=== PATIENT | male | born 1965 | race African-American/Black ===

== ENCOUNTER 2018-05-25 08:58 | Emergency (ER) | payer MEDICARE ==
[2018-05-25] MEDS ORDERED: ONDANSETRON HCL 4 MG/2 ML VIAL ONE (09:32)
[2018-05-25] MEDS ORDERED: KETOROLAC TROMETHAMINE 30MG/ML ONE (09:32)
[2018-05-25 09:48] LABS: APPEARANCE,URINE Clear (CLEAR); BILIRUBIN,URINE Negative (NEGATIVE); COLOR,URINE Yellow (YELLOW); GLUCOSE, URINE (UA) Negative (NEGATIVE); KETONES,URINE Negative (NEGATIVE); LEUKOCYTE ESTERASE ,URINE Negative (NEGATIVE); NITRATE,URINE Negative (NEGATIVE); OCCULT BLOOD,URINE Negative (NEGATIVE); PROTEIN,URINE Negative (NEGATIVE)
[2018-05-25 09:52] LABS: BASOPHILS % (AUTO) 0.6 % (0.0-5.0); EOSINOPHILS % (AUTO) 0.2 % (0.0-8.0); HEMATOCRIT 41.6 % (42-54); LYMPHOCYTES % (AUTO) 10.6 % (21.0-51.0); MEAN CORPUSCULAR HGB CONC 33.1 g/dL (32.0-36.0); MEAN CORPUSCULAR VOLUME 87.5 fL (79-99); MONOCYTES % (AUTO) 9.7 % (3.0-13.0); NEUTROPHILS % (AUTO) 78.9 % (40.0-77.0); PLATELET COUNT (AUTO) 152 K/uL (130-400); RED BLOOD CELL COUNT(AUTO) 4.75 MIL/uL (4.50-6.20); RED CELL DISTRIBUTION WIDTH 14.5 % (11.0-15.5); WHITE BLOOD COUNT (AUTO) 12.5 K/uL (4.8-10.8)
[2018-05-25 09:59] LABS: CREATININE 1.4 mg/dL (0.5-1.5)
[2018-05-25 10:03] LABS: ALBUMIN 3.7 g/dL (3.5-5.0); BILIRUBIN,TOTAL 1.2 mg/dL (0.2-1.0)
[2018-05-25] MEDS ORDERED: CLONIDINE HCL 0.1 MG TABLET ONE (10:44)
[2018-05-25] MEDS ORDERED: HYDROCODONE/ACETAMINOPHEN 10/325 MG TAB ONE (10:45)
[2018-05-25] MEDS ORDERED: POTASSIUM CHLORIDE 20 MEQ ERTAB PO ONE (11:15)
[2018-05-25] MEDS ORDERED: CEFTRIAXONE SODIUM 1 GM ONE (11:15)
[2018-05-25] MEDS ORDERED: AZITHROMYCIN 250 MG TABLET PO ONE (11:16)
== END 2018-05-25 12:15 | disposition home or self-care (01) ==
LOC: EDH 08:58
DX: J15.9 Unspecified bacterial pneumonia (principal); I10 Essential (primary) hypertension; J45.909 Unspecified asthma, uncomplicated; I25.10 Atherosclerotic heart disease of native coronary artery without angina pectoris
CPT/HCPCS: 36415; 71046; 74176; 80053; 81003; 82150; 83690; 85025; 96374; 96375; 99285; J0696; J1885; J2405

== ENCOUNTER 2018-06-01 13:06 | Observation (INO) | payer MEDICARE ==
[~2018-06-01] VITALS: Ht 175.3 cm; Wt 102.1 kg
[2018-06-01] MEDS ORDERED: LABETALOL HCL 5 MG/ML 20ML VIAL IV ONE ×2 (14:28→17:15)
[2018-06-01 14:51] LABS: BASOPHILS % (AUTO) 0.4 % (0.0-5.0); EOSINOPHILS % (AUTO) 0.6 % (0.0-8.0); LYMPHOCYTES % (AUTO) 12.8 % (21.0-51.0); MEAN CORPUSCULAR HGB CONC 32.4 g/dL (32.0-36.0); MEAN CORPUSCULAR VOLUME 86.4 fL (79-99); MONOCYTES % (AUTO) 10.1 % (3.0-13.0); NEUTROPHILS % (AUTO) 76.1 % (40.0-77.0); PLATELET COUNT (AUTO) 300 K/uL (130-400); RED BLOOD CELL COUNT(AUTO) 4.29 MIL/uL (4.50-6.20); RED CELL DISTRIBUTION WIDTH 14.3 % (11.0-15.5); WHITE BLOOD COUNT (AUTO) 9.7 K/uL (4.8-10.8)
[2018-06-01] MEDS ORDERED: HYDRALAZINE HCL 20 MG/ML VIAL ONE (14:57)
[2018-06-01 15:06] LABS: INR 0.97 (0.85-1.15); PARTIAL THROMBOPLASTIN TIME 34.8 SEC (26.3-35.5); PROTHROMBIN TIME 10.2 SEC (9.6-11.6)
[2018-06-01 15:07] LABS: CREATININE 1.4 mg/dL (0.5-1.5)
[2018-06-01 15:12] LABS: ALBUMIN 3.1 g/dL (3.5-5.0); BILIRUBIN,TOTAL 0.8 mg/dL (0.2-1.0); TOTAL PROTEIN, SERUM 8.1 g/dL (6.0-8.3)
[2018-06-01] MEDS ORDERED: IOHEXOL 350 MG/ML 100ML INFUS..BTL IV ONE (16:05)
[2018-06-01] MEDS ORDERED: NITROGLYCERIN 1GM/1 INCH PACKET TD ONE (16:39)
[2018-06-01] MEDS ORDERED: POTASSIUM BICARB/CIT AC 25 MEQ TABLET.EFF ONE (16:52)
[2018-06-01] MEDS ORDERED: MORPHINE SULFATE 4 MG/1ML SYG ONE (17:05)
[2018-06-01] MEDS ORDERED: ONDANSETRON HCL 4 MG/2 ML VIAL ONE (17:05)
[2018-06-01] MEDS ORDERED: AMLODIPINE BESYLATE 5 MG TAB PO ONE (17:51)
[2018-06-01] MEDS ORDERED: METOPROLOL TARTRATE 50 MG TAB ONE (17:52)
[2018-06-01 18:28] LABS: AMPHET/METH SCREEN,URINE NEGATIVE (NEGATIVE); BARBITURATE SCREEN, URINE NEGATIVE (NEGATIVE); BENZODIAZEPINES SCREEN,URINE NEGATIVE (NEGATIVE); CANNABINOID SCREEN,URINE NEGATIVE (NEGATIVE); COCAINE SCREEN,URINE NEGATIVE (NEGATIVE); OPIATE SCREEN,URINE POSITIVE (NEGATIVE); PHENCYCLIDINE SCREEN,URINE NEGATIVE (NEGATIVE)
[2018-06-01 18:31] LABS: CREATINE KINASE, TOTAL 112 U/L (21-232); MYOGLOBIN 46 ng/mL (10-92); TROPONIN I < 0.04 ng/mL (0.00-0.06)
[2018-06-01 22:09] VITALS: BP 163/104
[2018-06-02] MEDS ORDERED: AMLO10TA6 PO (01:17)
[2018-06-02] MEDS ORDERED: METO50TA18 PO (01:17)
[2018-06-02] MEDS ORDERED: HYDR100T27 PO (01:17)
[2018-06-02] MEDS ORDERED: VENL75TA63 PO (01:17)
[2018-06-02] MEDS ORDERED: ZOLP10TA6 PO (01:17)
[2018-06-02 02:08] LABS: HEMATOCRIT 36.5 % (42-54); MEAN CORPUSCULAR HEMOGLOBIN 27.8 pg (27.0-33.0); MEAN CORPUSCULAR HGB CONC 32.5 g/dL (32.0-36.0); MEAN CORPUSCULAR VOLUME 85.7 fL (79-99); PLATELET COUNT (AUTO) 310 K/uL (130-400); RED BLOOD CELL COUNT(AUTO) 4.25 MIL/uL (4.50-6.20); RED CELL DISTRIBUTION WIDTH 13.9 % (11.0-15.5); WHITE BLOOD COUNT (AUTO) 10.1 K/uL (4.8-10.8)
[2018-06-02 02:25] LABS: CARBON DIOXIDE 23 mmol/L (21-32); CHLORIDE 106 mmol/L (101-111); CREATINE KINASE, TOTAL 87 U/L (21-232); CREATININE 1.2 mg/dL (0.5-1.5); GLOMERULAR FILTR. RATE CALC 81 mL/min (>60); GLUCOSE,RANDOM 112 mg/dL (70-105); MYOGLOBIN 32 ng/mL (10-92); POTASSIUM 3.2 mmol/L (3.5-5.1); SODIUM SERUM 140 mmol/L (136-145); TROPONIN I < 0.04 ng/mL (0.00-0.06); UREA NITROGEN, BLOOD 10 mg/dL (7-18)
[2018-06-02 04:00] VITALS: BP 166/96
[2018-06-02] MEDS ORDERED: POTASSIUM CHLORIDE 10 MEQ/TAB.SA PO ONE ×2 (06:54)
[2018-06-02] MEDS ORDERED: REGADENOSON 0.4 MG/5 ML PF SYG IVP SCH (07:00)
[2018-06-02] MEDS: POTASSIUM CHLORIDE 20 MEQ ERTAB PO SCH (07:00)
[2018-06-02 07:34] VITALS: BP 161/99
[2018-06-02] MEDS: AMLODIPINE BESYLATE 5 MG TAB PO SCH (09:24)
[2018-06-02] MEDS: VENLAFAXINE HCL 75 MG TAB PO SCH (09:24)
[2018-06-02] MEDS: HYDRALAZINE HCL 25 MG TABLET PO SCH ×2 (09:25→21:38)
[2018-06-02] MEDS: ASPIRIN 81MG TAB.CHEW PO SCH (09:25)
[2018-06-02] MEDS: METOPROLOL TARTRATE 50 MG TAB PO SCH ×2 (09:25→21:38)
[2018-06-02] MEDS ORDERED: ONDANSETRON HCL 4 MG/2 ML VIAL ONE (10:15)
[2018-06-02 10:29] LABS: CREATINE KINASE, TOTAL 94 U/L (21-232); MYOGLOBIN 44 ng/mL (10-92); TROPONIN I < 0.04 ng/mL (0.00-0.06)
[2018-06-02] MEDS ORDERED: ONDANSETRON HCL 4 MG/2 ML VIAL IVP PRN (10:30)
[2018-06-02 10:54] VITALS: BP 176/101
[2018-06-02 16:05] VITALS: BP 166/98
[2018-06-02 19:17] VITALS: BP 179/107
[2018-06-02] MEDS ORDERED: ZOLPIDEM TARTRATE 5 MG TAB PO SCH (21:00)
[2018-06-02 23:48] VITALS: BP 145/94
[2018-06-03 04:44] VITALS: BP 145/105
[2018-06-03] MEDS: POTASSIUM CHLORIDE 20 MEQ ERTAB PO SCH (07:00)
[2018-06-03 07:55] VITALS: BP 171/83
[2018-06-03] MEDS: HYDRALAZINE HCL 25 MG TABLET PO SCH (08:34)
[2018-06-03] MEDS: AMLODIPINE BESYLATE 5 MG TAB PO SCH (08:34)
[2018-06-03] MEDS: ASPIRIN 81MG TAB.CHEW PO SCH (08:34)
[2018-06-03] MEDS: METOPROLOL TARTRATE 50 MG TAB PO SCH (08:35)
[2018-06-03] MEDS: VENLAFAXINE HCL 75 MG TAB PO SCH (08:35)
[2018-06-03 11:33] VITALS: BP 161/93
[2018-06-03 11:42] VITALS: BP 147/88
== END 2018-06-03 11:59 | disposition home or self-care (01) ==
LOC: EDH 13:06 → EDHIP 17:21 → 2AH 21:48
PROVIDERS: ADMIT Internal Medicine Nephrology; ATTEND Internal Medicine Nephrology
DX: I10 Essential (primary) hypertension (principal); I25.10 Atherosclerotic heart disease of native coronary artery without angina pectoris; G47.00 Insomnia, unspecified; F32.9 Major depressive disorder, single episode, unspecified; Z82.49 Family history of ischemic heart disease and other diseases of the circulatory system; Z83.3 Family history of diabetes mellitus; Z91.14 Patient's other noncompliance with medication regimen; F41.9 Anxiety disorder, unspecified; Z79.01 Long term (current) use of anticoagulants
CPT/HCPCS: 36415 ×2; 70450; 71045; 71275; 80048; 80053; 80305; 82550 ×4; 83735; 83874 ×3; 84484 ×4; 85025; 85027; 85378; 85610; 85730; 93005; 96374; 99291; G0378 ×43; J0360; J2270; J2405 ×2; J3490 ×2; Q9967; J2785

== ENCOUNTER → 2020-04-20 | Outpatient (CLI) | payer MEDICARE ==
[~2020-04-20] MED LIST: AMLO10TA7 PO; HYDR100T27 PO; METO50TA18 PO; VENL-61 PO; ZOLP10TA6 PO
== END | disposition home or self-care (01) ==
LOC: SHCH 08:23
PROVIDERS: ATTEND Internal Medicine Cardiovascular Disease
DX: R06.09 Other forms of dyspnea (principal); R07.9 Chest pain, unspecified
CPT/HCPCS: 93306; 93356

== ENCOUNTER → 2020-05-04 | Outpatient (CLI) | payer MEDICARE ==
--- NOTE | 2020-05-05 00:48 | NUR ---
AMPLODIPINE 10 MG,HCTZ 50 MG,DAILY ASPIRIN 81 MG,NITROGLYCERINE 4 MG,BUSPIRONE 15 MG,ALLOPURINOL 100 MG,VENLAFAXIN 75 MG,ZOLPIDEM 10 MG,ALBUTEROL 1.08%2 TREATMENTS,SYMBICOURT AER 2 PUFFS DAILY,ACETAMINOPHEN/COD#3 1 TAB,FLUTICASONE SPRAY 50 MG,SINGULAR 10 MG,ACETAZOLAMID 500 MG,POT.CHLORIDE MICRO. TAB 20 MEQ ER,[employer]-[facility] Rx,OMEPRAZOLE 40 MG,ATORVASTATIN 40 MG Addendum: 05/05/20 at 0120 by PRANAY REED Amended: Links added.
== END | disposition home or self-care (01) ==
LOC: SLP 20:52
DX: G47.30 Sleep apnea, unspecified (principal); I10 Essential (primary) hypertension; E11.9 Type 2 diabetes mellitus without complications
CPT/HCPCS: 95810

== ENCOUNTER → 2020-05-11 | Outpatient (CLI) | payer MEDICARE ==
[~2020-05-11] MED LIST changes: +REGADENOSON 0.4 MG/5 ML PF SYG IVP SCH
== END | disposition home or self-care (01) ==
LOC: SHCH 09:18
PROVIDERS: ATTEND Internal Medicine Cardiovascular Disease
DX: I87.2 Venous insufficiency (chronic) (peripheral) (principal); I25.10 Atherosclerotic heart disease of native coronary artery without angina pectoris
CPT/HCPCS: 78452; 93017; 93970; 96374; A9500 ×2; J2785

== ENCOUNTER → 2020-05-18 | Outpatient (CLI) | payer MEDICARE ==
[~2020-05-18] VITALS: Ht 175.3 cm; Wt 111.1 kg
[~2020-05-18] MED LIST changes: +ALLO100T PO; +ASPI-449 PO; +ATOR40TA71 PO; +BUDE10.22 IH; +BUSP15TA3 PO; +FURO20TA4 PO; +HYDR-2534 PO; +HYDR-4154 PO; +INDO50CA98 PO; +NITR0.4T50 SL; +OMEP40CA13 PO; +POTA20PA41 PO; -REGADENOSON 0.4 MG/5 ML PF SYG IVP SCH; +SODIUM CHLORIDE 0.9% 500ML 500 ML IV SCH
[2020-05-18 15:05] LABS: HEMATOCRIT 42.4 % (42-54); MEAN CORPUSCULAR HGB CONC 32.1 g/dL (32.0-36.0); MEAN CORPUSCULAR VOLUME 87.4 fL (79-99); PLATELET COUNT (AUTO) 177 K/uL (130-400); RED BLOOD CELL COUNT(AUTO) 4.85 MIL/uL (4.50-6.20); RED CELL DISTRIBUTION WIDTH 14.3 % (11.0-15.5); WHITE BLOOD COUNT (AUTO) 5.7 K/uL (4.8-10.8)
[2020-05-18 15:14] LABS: APPEARANCE,URINE Clear (CLEAR); BILIRUBIN,URINE Negative (NEGATIVE); COLOR,URINE Yellow (YELLOW); GLUCOSE, URINE (UA) Negative (NEGATIVE); KETONES,URINE Negative (NEGATIVE); LEUKOCYTE ESTERASE ,URINE Negative (NEGATIVE); NITRATE,URINE Negative (NEGATIVE); OCCULT BLOOD,URINE Negative (NEGATIVE); PROTEIN,URINE Negative (NEGATIVE); UROBILINOGEN,URINE 0.2 mg/dL (0.2-1.0)
[2020-05-18 15:21] LABS: INR 0.98 (0.85-1.15); PARTIAL THROMBOPLASTIN TIME 28.1 SEC (26.3-35.5); PROTHROMBIN TIME 10.6 SEC (9.6-11.6)
[2020-05-18 15:24] LABS: CREATININE 1.8 mg/dL (0.5-1.5); POTASSIUM 3.1 mmol/L (3.5-5.1)
[2020-05-18 15:30] LABS: EOSINOPHILS % (MANUAL) 2 % (1-6); LYMPHOCYTES % (MANUAL) 41 % (22-44); MONOCYTES % (MANUAL) 2 % (2-9); REACTIVE LYMPHOCYTES 2 % (0-0); SEGMENTED NEUTROPHILS % 53 % (40-70)
[2020-05-18 15:31] LABS: MAN.DIFF COMMENT-IMPRESSION MANUAL DIFFERENTIAL; PLATELET MORPHOLOGY COMMENT ADEQUATE
[2020-05-18 16:15] VITALS: BP 207/121
[2020-05-18 17:40] VITALS: BP 207/121
--- NOTE | 2020-05-18 18:32 | NUR ---
ABNORMAL POTASSIUM LEVEL AND CREAT LEVEL REPORTED TO GUERA ALVAREZ, NEW ORDERS RECEIVED AND CARRIED OUT.
--- NOTE | 2020-05-21 06:20 | NUR ---
CALL CALLED SPOUSE TO SEE IF PT HERE FOR PROCEDURE. PER PT HAS SINUS INFECTION AND CALLED YESTERDAY TO RESCHEDULE. SHE WILL BE CALLING MD OFFICE TODAY TO RESCHEDULE.
== END | disposition home or self-care (01) ==
LOC: DAH 10:00 → EDSTATUS 13:00
PROVIDERS: ATTEND Internal Medicine Cardiovascular Disease
DX: Z01.810 Encounter for preprocedural cardiovascular examination (principal); I25.119 Atherosclerotic heart disease of native coronary artery with unspecified angina pectoris; I16.0 Hypertensive urgency; Z79.01 Long term (current) use of anticoagulants
CPT/HCPCS: 36415; 71045; 80048; 81003; 85025; 85610; 85730; 93005; J7040

== ENCOUNTER → 2020-05-19 | Outpatient (CLI) | payer MEDICARE ==
[~2020-05-19] MED LIST changes: -HYDR100T27 PO; -SODIUM CHLORIDE 0.9% 500ML 500 ML IV SCH
== END | disposition home or self-care (01) ==
LOC: SLP 20:40
DX: G47.30 Sleep apnea, unspecified (principal); I10 Essential (primary) hypertension; E11.9 Type 2 diabetes mellitus without complications
CPT/HCPCS: 95811

== ENCOUNTER 2020-06-14 10:59 | Day surgery (SDC) | payer MEDICARE ==
[2020-06-12 09:58] VITALS: BP 163/91
[2020-06-12 14:54] LABS: APPEARANCE,URINE Clear (CLEAR); BILIRUBIN,URINE Negative (NEGATIVE); COLOR,URINE Yellow (YELLOW); GLUCOSE, URINE (UA) Negative (NEGATIVE); KETONES,URINE Negative (NEGATIVE); LEUKOCYTE ESTERASE ,URINE Negative (NEGATIVE); NITRATE,URINE Negative (NEGATIVE); OCCULT BLOOD,URINE Negative (NEGATIVE); PH,URINE 6.5 (5.0-8.0); PROTEIN,URINE Negative (NEGATIVE); UROBILINOGEN,URINE 0.2 mg/dL (0.2-1.0)
[2020-06-12 14:56] LABS: BASOPHILS % (AUTO) 0.5 % (0.0-5.0); EOSINOPHILS % (AUTO) 2.2 % (0.0-8.0); HEMATOCRIT 39.3 % (42-54); LYMPHOCYTES % (AUTO) 34.9 % (21.0-51.0); MEAN CORPUSCULAR HEMOGLOBIN 28.5 pg (27.0-33.0); MEAN CORPUSCULAR HGB CONC 31.8 g/dL (32.0-36.0); MEAN CORPUSCULAR VOLUME 89.7 fL (79-99); MONOCYTES % (AUTO) 7.5 % (3.0-13.0); NEUTROPHILS % (AUTO) 54.6 % (40.0-77.0); PLATELET COUNT (AUTO) 177 K/uL (130-400); RED BLOOD CELL COUNT(AUTO) 4.38 MIL/uL (4.50-6.20); RED CELL DISTRIBUTION WIDTH 14.6 % (11.0-15.5)
[2020-06-12 15:10] LABS: CREATININE 1.6 mg/dL (0.5-1.5); POTASSIUM 3.7 mmol/L (3.5-5.1)
[2020-06-12 15:12] LABS: INR 0.92 (0.85-1.15); PARTIAL THROMBOPLASTIN TIME 28.2 SEC (26.3-35.5)
--- NOTE | 2020-06-13 16:00 | NUR ---
LABS ABNORMAL LABS REPORTED TO YAIR LYNNE, FURTHER ORDERS GIVEN AND WILL BE CARRIED OUT
[~2020-06-14] VITALS: Ht 175.3 cm; Wt 111.9 kg
[2020-06-14] VITALS (10 sets, daily range): BP systolic 122–187; BP diastolic 76–106
[~2020-06-14 10:59] MED LIST changes: +ACET500C51 PO; -ALLO100T PO; +AMLO-258 PO; -AMLO10TA7 PO; +ATOR-2 PO; -ATOR40TA71 PO; -BUDE10.22 IH; -BUSP15TA3 PO; +CLON0.1T PO; -FURO20TA4 PO; -INDO50CA98 PO; +ISOS30TA6 PO; +METO100T14 PO; -METO50TA18 PO; -NITR0.4T50 SL; -OMEP40CA13 PO; -POTA20PA41 PO; +POTA40LI17 PO; +RANO500T6 PO; +SODIUM CHLORIDE 0.9% 1000ML 1,000 ML IV SCH; +TYL4 PO; -VENL-61 PO; +VENL-63 PO
[2020-06-14] MEDS ORDERED: BIVALIRUDIN 250 MG/VIAL IV ONE (11:41)
[2020-06-14] MEDS ORDERED: HEPARIN SODIUM 1000UNIT/ML 10ML VIAL ONE (11:42)
[2020-06-14] MEDS ORDERED: FENTANYL CITRATE PF 50 MCG/1 ML 2ML VIAL ONE (11:42)
[2020-06-14] MEDS ORDERED: MIDAZOLAM HCL 1 MG/ML 2ML VIAL ONE (11:42)
[2020-06-14] MEDS ORDERED: LIDOCAINE HCL 2% 20ML ONE (11:42)
[2020-06-14] MEDS ORDERED: NITROGLYCERIN 2 MG/VIAL VIAL IV ONE (11:42)
[2020-06-14] MEDS ORDERED: IOHEXOL 350 MG/ML 100ML INFUS..BTL IV ONE (12:17)
[2020-06-14] MEDS ORDERED: IOHEXOL-350 50ML VIAL IV ONE (12:17)
[2020-06-14] MEDS ORDERED: SODIUM CHLORIDE 0.9% 1000ML 1,000 ML IV SCH (12:45)
[2020-06-14] MEDS ORDERED: NITROGLYCERIN 0.4 MG SL TAB SL PRN (12:45)
[2020-06-14] MEDS ORDERED: HYDRALAZINE HCL 20 MG/ML VIAL IV PRN (12:45)
[2020-06-14] MEDS ORDERED: DEXTROSE 50%-WATER 50 ML DISP.SYRIN IV PRN (12:45)
[2020-06-14] MEDS ORDERED: GLUCAGON 1MG KIT 1 MG ML IM PRN (12:45)
--- NOTE | 2020-06-14 13:00 | NUR ---
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 Pt awake but drowsy denies any c/o. Has dressing to right groin dry and intact. Site with no tenderness no swelling noted. Pt made aware of bed rest orders. IV NS at 100ml/hr as per order. Call left within reach.
--- NOTE | 2020-06-14 14:00 | NUR ---
Assess Pt awake and alert, talkative. Site WNL. Pt states not hungry. Fluids were offered and taken. Pt tolerated well. Denies any c/o. Fluids continue to infuse as per order.
--- NOTE | 2020-06-14 16:20 | NUR ---
Bradycardia Noted HR fluctuating between high 50's to low 40's. Pt states feeling fine and was told during a sleep study his heart rate goes low. Called GUERA Santiago and made aware. Stated no orders due to pt being asymptomatic. Will continue to monitor.
--- NOTE | 2020-06-14 16:40 | NUR ---
Report Transferred care to Bing Breaux RN. Report given regarding pt's condition. Pt continues awake, alert, talkative. Denies any c/o of low HR.
== END 2020-06-14 17:50 | disposition home or self-care (01) ==
LOC: DAH 10:59 → EDSTATUS 13:00 → DAH 17:50
PROVIDERS: ATTEND Internal Medicine Cardiovascular Disease
DX: I25.119 Atherosclerotic heart disease of native coronary artery with unspecified angina pectoris (principal); I13.0 Hypertensive heart and chronic kidney disease with heart failure and stage 1 through stage 4 chronic kidney disease, or unspecified chronic kidney disease; I50.32 Chronic diastolic (congestive) heart failure; N18.9 Chronic kidney disease, unspecified; I87.2 Venous insufficiency (chronic) (peripheral); Z82.49 Family history of ischemic heart disease and other diseases of the circulatory system; Z90.89 Acquired absence of other organs; Z98.890 Other specified postprocedural states; Z79.899 Other long term (current) drug therapy
CPT/HCPCS: 36252; 36415; 71045; 80048; 81003; 85025; 85610; 85730; 93005; 93458; 96360; 96361; A4215; A4216; A4221; A4222; A4223 ×3; A4663 ×2; C1760; C1894 ×2; J1644; J2250; J3010; J3490 ×2; J7030 ×2; Q9965; Q9967; 99156; 99157; J0583

== ENCOUNTER → 2020-12-19 | Outpatient (CLI) | payer MEDICARE ==
[~2020-12-19] MED LIST changes: -HYDR-2534 PO; +HYDR50TA PO; -ISOS30TA6 PO; +ISOS30TA92 PO; -SODIUM CHLORIDE 0.9% 1000ML 1,000 ML IV SCH
== END | disposition home or self-care (01) ==
LOC: SHCH 12:41
PROVIDERS: ATTEND Internal Medicine Cardiovascular Disease
DX: I70.203 Unspecified atherosclerosis of native arteries of extremities, bilateral legs (principal)
CPT/HCPCS: 93925

== ENCOUNTER → 2021-04-02 | Outpatient (CLI) | payer MEDICARE | END | disposition home or self-care (01) | LOC: RAH 13:34 | PROVIDERS: ATTEND Otolaryngology Plastic Surgery within the Head & Neck | DX: J32.8 Other chronic sinusitis (principal); J47.9 Bronchiectasis, uncomplicated | CPT/HCPCS: 70486 ==

== ENCOUNTER 2021-05-10 06:19 | Day surgery (SDC) | payer MEDICARE ==
[2021-05-09 10:54] LABS: APPEARANCE,URINE Clear (CLEAR); BILIRUBIN,URINE Negative (NEGATIVE); COLOR,URINE Yellow (YELLOW); GLUCOSE, URINE (UA) Negative (NEGATIVE); KETONES,URINE Negative (NEGATIVE); LEUKOCYTE ESTERASE ,URINE Negative (NEGATIVE); NITRATE,URINE Negative (NEGATIVE); OCCULT BLOOD,URINE Negative (NEGATIVE); PH,URINE 5.5 (5.0-8.0); PROTEIN,URINE Negative (NEGATIVE); UROBILINOGEN,URINE 0.2 mg/dL (0.2-1.0)
[2021-05-09 11:45] LABS: BASOPHILS % (AUTO) 0.5 % (0.0-5.0); HEMATOCRIT 42.1 % (42-54); LYMPHOCYTES % (AUTO) 30.2 % (21.0-51.0); MEAN CORPUSCULAR HEMOGLOBIN 28.5 pg (27.0-33.0); MEAN CORPUSCULAR HGB CONC 32.1 g/dL (32.0-36.0); MEAN CORPUSCULAR VOLUME 88.8 fL (79-99); MONOCYTES % (AUTO) 6.9 % (3.0-13.0); NEUTROPHILS % (AUTO) 59.7 % (40.0-77.0); PLATELET COUNT (AUTO) 191 K/uL (130-400); RED BLOOD CELL COUNT(AUTO) 4.74 MIL/uL (4.50-6.20); RED CELL DISTRIBUTION WIDTH 13.8 % (11.0-15.5); WHITE BLOOD COUNT (AUTO) 8.6 K/uL (4.8-10.8)
[2021-05-09 11:52] LABS: CREATININE 1.4 mg/dL (0.5-1.5); POTASSIUM 3.5 mmol/L (3.5-5.1)
[2021-05-09 12:00] LABS: INR 1.01 (0.85-1.15)
[2021-05-09 12:02] LABS: PARTIAL THROMBOPLASTIN TIME 28.8 SEC (26.3-35.5)
[2021-05-09 15:04] VITALS: BP 182/84
[~2021-05-10] VITALS: Ht 175.3 cm; Wt 114.7 kg
[2021-05-10] VITALS (13 sets, daily range): BP systolic 130–217; BP diastolic 77–144
[~2021-05-10 06:19] MED LIST changes: +0.9% NACL 500ML IV.SOLN 500 ML IV SCH; +ALBU8.5H8 IH; -HYDR50TA PO; +NITR0.4T50 SL; +POTA10TA11 PO; -POTA40LI17 PO; +albuterol IH
[2021-05-10] MEDS ORDERED: 0.9%NACL 1000ML 1,000 ML IV ONE (08:20)
[2021-05-10] MEDS ORDERED: LIDOCAINE HCL 400MG/20ML VIAL ONE (10:37)
[2021-05-10] MEDS ORDERED: NITROGLYCERIN 2 MG VIAL IV ONE (10:37)
[2021-05-10] MEDS ORDERED: IODIXANOL 320 MG/ML 100 ML VIAL ONE (10:37)
[2021-05-10] MEDS ORDERED: HEPARIN 10,000 UNIT/10ML (1,000 UNIT/ML) VIAL ONE (10:37)
[2021-05-10] MEDS ORDERED: MIDAZOLAM HCL 1 MG/ML 2ML VIAL ONE ×2 (10:37→11:09)
[2021-05-10] MEDS ORDERED: FENTANYL CITRATE PF 50 MCG/1 ML 2ML VIAL ONE (10:37)
[2021-05-10] MEDS ORDERED: CLOPIDOGREL 300MG TAB ONE (11:30)
[2021-05-10] MEDS ORDERED: 0.9%NACL 1000ML 1,000 ML IV SCH (11:30)
[2021-05-10] MEDS ORDERED: NITROGLYCERIN 0.4 MG SL TAB SL PRN (11:30)
[2021-05-10] MEDS ORDERED: DEXTROSE 50%-WATER 50 ML DISP.SYRIN IV PRN (11:30)
[2021-05-10] MEDS ORDERED: GLUCAGON 1MG KIT 1 MG ML IM PRN (11:30)
== END 2021-05-10 16:05 | disposition home or self-care (01) ==
LOC: DAH 06:19
PROVIDERS: ATTEND Internal Medicine Cardiovascular Disease
DX: Q27.1 Congenital renal artery stenosis (principal); I15.0 Renovascular hypertension; I70.1 Atherosclerosis of renal artery; I13.0 Hypertensive heart and chronic kidney disease with heart failure and stage 1 through stage 4 chronic kidney disease, or unspecified chronic kidney disease; I50.42 Chronic combined systolic (congestive) and diastolic (congestive) heart failure; N18.4 Chronic kidney disease, stage 4 (severe); I25.119 Atherosclerotic heart disease of native coronary artery with unspecified angina pectoris; I87.2 Venous insufficiency (chronic) (peripheral); E66.9 Obesity, unspecified; F41.9 Anxiety disorder, unspecified; F32.9 Major depressive disorder, single episode, unspecified; M10.9 Gout, unspecified; E78.5 Hyperlipidemia, unspecified; J45.909 Unspecified asthma, uncomplicated; Z79.82 Long term (current) use of aspirin; Z79.01 Long term (current) use of anticoagulants; Z79.899 Other long term (current) drug therapy; Z98.890 Other specified postprocedural states; Z90.89 Acquired absence of other organs; Z82.49 Family history of ischemic heart disease and other diseases of the circulatory system; Z68.36 Body mass index [BMI] 36.0-36.9, adult
CPT/HCPCS: 36415; 37236; 71045; 80048; 81003; 85025; 85610; 85730; 93005; A4215; A4216; A4221; A4222; A4223 ×3; A4606; A4663; C1760; C1769; C1876; C1887; C1894 ×2; J1644 ×2; J2250 ×2; J3010; J3490 ×2; J7030; Q9967; 36251; 96360; 96361; 99156; 99157

== ENCOUNTER → 2021-06-03 | Outpatient (CLI) | payer MEDICARE ==
[~2021-06-03] MED LIST changes: -0.9% NACL 500ML IV.SOLN 500 ML IV SCH
[2021-06-03 12:23] LABS: APPEARANCE,URINE Clear (CLEAR); BILIRUBIN,URINE Negative (NEGATIVE); COLOR,URINE Yellow (YELLOW); GLUCOSE, URINE (UA) Negative (NEGATIVE); KETONES,URINE Negative (NEGATIVE); LEUKOCYTE ESTERASE ,URINE Negative (NEGATIVE); NITRATE,URINE Negative (NEGATIVE); OCCULT BLOOD,URINE Negative (NEGATIVE); PH,URINE 6.5 (5.0-8.0); PROTEIN,URINE Negative (NEGATIVE)
== END | disposition home or self-care (01) ==
LOC: RAH 11:10
PROVIDERS: ATTEND Internal Medicine Cardiovascular Disease
DX: R22.42 Localized swelling, mass and lump, left lower limb (principal); I72.4 Aneurysm of artery of lower extremity; R30.0 Dysuria
CPT/HCPCS: 76882; 81003